=== PATIENT | male | born 1965 | race Caucasian/White ===

== ENCOUNTER → 2018-08-22 | Outpatient (CLI) | payer OTHER | LOC: M.CT 13:22 | DX: Z13.6 Encounter for screening for cardiovascular disorders (principal); I25.10 Atherosclerotic heart disease of native coronary artery without angina pectoris ==

== ENCOUNTER → 2019-07-11 | Outpatient (CLI) | payer OTHER | LOC: M.ULTRA 12:56 | DX: R20.2 Paresthesia of skin (principal) ==